=== PATIENT | female | born 1975 | race Hispanic/Latino ===

== ENCOUNTER 2017-10-12 10:05 | Outpatient (CLI) | payer BC ==
--- NOTE | 2017-10-12 13:26 | MMO ---
BILATERAL SCREENING MAMMOGRAM: Date: 10/12/17 HISTORY: Screening. Baseline examination. COMPARISON: None. TECHNIQUE: Bilateral screening CC and MLO mammograms. This patient's mammogram was interpreted with the assistance of computer-aided detection. FINDINGS: There is a focal asymmetry right breast, middle depth, 12 o'clock, 5.0 cm from the nipple. No other a bnormal mass, calcifications, or architectural distortion. IMPRESSION: Focal asymmetry right breast, middle depth, 5.0 cm from the nipple, requires further interrogation. BIRADS 0: Incomplete: Need Additional Imaging Evaluation and/or Prior Mammograms for Comparison Spot compression and ultrasound, if deemed necessary, recommended. The facility will notify patient of need for additional imaging services. POS: JACKIE
== END 2017-10-12 10:06 | disposition home or self-care (01) ==
LOC: SCSMAMMO 10:05
PROVIDERS: ATTEND Family Medicine
DX: Z12.31 Encounter for screening mammogram for malignant neoplasm of breast (principal)
CPT/HCPCS: 77067

== ENCOUNTER 2017-10-19 13:45 | Outpatient (CLI) | payer BC | END 2017-10-19 13:46 | disposition home or self-care (01) | LOC: BICMAMMO 13:45 | PROVIDERS: ATTEND Family Medicine | DX: R92.2 Inconclusive mammogram (principal); N63.11 Unspecified lump in the right breast, upper outer quadrant | CPT/HCPCS: G0279 ==

== ENCOUNTER 2018-07-19 14:42 | Outpatient (CLI) | payer BC ==
--- NOTE | 2018-07-19 15:41 | MMO ---
Right Breast MAMMO Unilat Diag [facility]DI RT+LADY. CLINICAL HISTORY: Patient is 43 years old and is seen for diagnostic exam. The patient has the following family history of breast cancer: paternal aunt. The patient has no personal history of cancer. VIEWS: The views performed were: right craniocaudal with tomosynthesis; right mediolateral oblique with tomosynthesis; and right mediolateral. FILMS COMPARED: The present examination has been compared to prior imaging studies performed at [facility] on 10/12/2017, 10/19/2017 and 07/19/2018. MAMMOGRAM FINDINGS: The breast is heterogeneously dense, which could obscure a lesion on mammography. There is a stable oval mass measuring 8 millimeters with obscured margins seen in the right breast at 12 o'clock. Sonography demonstrates features compatible with a simple cyst. There are no suspicious masses, suspicious calcifications, or new areas of architectural distortion. IMPRESSION: THERE IS NO MAMMOGRAPHIC EVIDENCE OF MALIGNANCY. A ROUTINE FOLLOW-UP MAMMOGRAM IN 6 MONTHS IS RECOMMENDED. THE RESULTS OF THIS EXAM WERE SENT TO THE PATIENT. ACR BI-RADS Category 2 - Benign finding MAMMOGRAPHY NOTE: 1. A negative mammogram report should not delay a biopsy if a dominant of clinically suspicious mass is present. 2. Approximately 10% to 15% of breast cancers are not detected by mammography. 3. Adenosis and dense breasts may obscure an underlying neoplasm.
--- NOTE | 2018-07-19 16:26 | ULT ---
LIMITED RIGHT BREAST ULTRASOUND: Date: 07-19-18 Provided Clinical History: Follow up mass. Comparison: Ultrasound, 10-19-17. FINDINGS: The previously described hypoechoic nodule involving the right breast at the 11:30 position is redemo nstrated, without significant interval change. This may have decreased in size slightly. There has be en development of a similar, slightly larger lesion measuring about 8 mm immediately adjacent to this which has features typical for a cyst. IMPRESSION: 1. BIRADS category 2 - benign findings. Return to annual screening mammography is recommended. POS: OFF
== END 2018-07-19 14:43 | disposition home or self-care (01) ==
LOC: BICMAMMO 14:42
PROVIDERS: ATTEND Family Medicine
DX: R92.8 Other abnormal and inconclusive findings on diagnostic imaging of breast (principal)
CPT/HCPCS: G0279